=== PATIENT | female | born 1955 | race African-American/Black ===

== ENCOUNTER 2017-09-30 19:46 | Emergency (ER) | payer OTHER ==
[~2017-09-30] VITALS: Ht 149.9 cm; Wt 61.2 kg
[2017-09-30] MEDS ORDERED: HYDR25TA4 PO (20:09)
[2017-09-30] MEDS ORDERED: LOSA100T15 PO (20:09)
[2017-09-30] MEDS ORDERED: ATOR10TA PO (20:09)
--- NOTE | 2017-09-30 20:26 | NUR ---
Dr. Abreu at bedside for MSE
[2017-09-30] MEDS ORDERED: IV NORMAL SALINE 500 ML BAG IV ONE (20:30)
[2017-09-30 21:02] LABS: BASOPHILS % (AUTO) 0.7 % (0.0-2.0); EOSINOPHILS # (AUTO) 0.1 K/uL (0.0-0.7); HEMATOCRIT 35.3 % (31.2-41.9); HEMOGLOBIN 11.6 g/dL (10.9-14.3); LYMPHOCYTES # (AUTO) 2.3 K/uL (20.0-40.0); LYMPHOCYTES % (AUTO) 37.2 % (20.5-51.5); MEAN CORPUSCULAR HEMOGLOBIN 27.2 uug (24.7-32.8); MEAN CORPUSCULAR HGB CONC 33 g/dL (32.3-35.6); MEAN CORPUSCULAR VOLUME 82.7 fL (75.5-95.3); MONOCYTES # (AUTO) 0.7 K/uL (2.0-10.0); MONOCYTES % (AUTO) 10.8 % (0.0-11.0); NEUTROPHILS # (AUTO) 3.2 K/uL (1.8-8.9); NEUTROPHILS % (AUTO) 50.3 % (38.5-71.5); PLATELET COUNT (AUTO) 290 K/uL (179-408); RED BLOOD CELL COUNT(AUTO) 4.27 MIL/uL (3.63-4.92); WHITE BLOOD COUNT (AUTO) 6.3 K/uL (3.8-11.8)
[2017-09-30 21:06] LABS: CREATININE 1.3 mg/dL (0.6-1.3); POTASSIUM 3.6 mmol/L (3.5-5.1)
[2017-09-30 21:20] LABS: BILIRUBIN,DIRECT 0.1 mg/dL (0.0-0.2); BILIRUBIN,TOTAL 0.4 mg/dL (0.2-1.0); TOTAL PROTEIN, SERUM 7.9 g/dL (6.4-8.2)
--- NOTE | 2017-09-30 21:58 | NUR ---
Pt sts she is feeling better. Pt stable for discharge per MD. IV dc'd, catheter intact. Drsg applied. No problems noted to site. Pt given ACI. Pt verbalized understanding of dc instructions. Pt ambulated out of ER with steady gait.
[2017-09-30 22:03] VITALS: BP 121/76
== END 2017-09-30 22:04 | disposition home or self-care (01) ==
LOC: ER 19:50
DX: J10.1 Influenza due to other identified influenza virus with other respiratory manifestations (principal); I10 Essential (primary) hypertension; E78.00 Pure hypercholesterolemia, unspecified; J44.9 Chronic obstructive pulmonary disease, unspecified; Z90.710 Acquired absence of both cervix and uterus; Z79.899 Other long term (current) drug therapy
CPT/HCPCS: 36415; 71045; 80048; 80076; 83605; 83880; 84484; 85025; 87040; 87400; 93005; 96360; 99285; A4663; J7030; 70030-TC